=== PATIENT | female | born 1950 | race Caucasian/White ===

== ENCOUNTER 2016-08-25 16:26 | Inpatient (IN) | payer MEDICARE ==
[2016-08-25] VITALS (215 sets, daily range): BP systolic 101–108; BP diastolic 61–81; PULSE 80–97; TEMP 98.4–99.2; O2SAT 68–100
[~2016-08-25] VITALS: Ht 165.1 cm; Wt 87.1 kg
[2016-08-25 16:57] LABS: ADD PATHOLOGY DIFF REVIEW NO; HEMATOCRIT 31.3 % (37.0-47.0); HEMOGLOBIN 9.4 g/dl (12.5-16.0); MEAN CELL VOLUME 88 fl (80.0-100.0); MEAN CORPUSCULAR HEMOGLOBIN 26 pg (27.0-31.0); MEAN CORPUSCULAR HGB CONC 30 g/dl (33.0-37.0); MEAN PLATELET VOLUME 10.3 fl (7.4-10.4); PLATELET COUNT 185 K/mm3 (130-400); RED BLOOD COUNT 3.57 M/mm3 (4.10-5.30); REDCELL DISTRIBUTION WIDTH-CV 18.7 % (11.5-14.5)
[2016-08-25 17:01] LABS: INR 1.4 (0.8-3.0); PROTHROMBIN TIME 16.1 SECONDS (9.7-12.8)
[2016-08-25 17:07] LABS: ADJUSTED CALCIUM 8.6 mg/dL (8.4-10.2); ALBUMIN 3.7 gm/dL (3.5-5.0); BILIRUBIN,TOTAL 0.8 mg/dL (0.0-1.0); CALCIUM 8.4 mg/dL (8.4-10.2); CREATININE, serum 1.52 mg/dL (0.52-1.25); POTASSIUM 3.6 mmol/L (3.4-5.0); TOTAL PROTEIN 7.2 gm/dL (6.4-8.2)
[2016-08-25 17:16] LABS: ARTERIAL BLD GAS TCO2 CT 26.1; ARTERIAL BLOOD GAS BASE EXCESS 0.6 (-2-2); ARTERIAL BLOOD GAS HCO3 24.9 meq/L (22-26); ARTERIAL BLOOD GAS PHT 7.42 C (7.35-7.45); ARTERIAL BLOOD GAS PO2 58.4 mmHg (80-100); ARTERIAL BLOOD GAS PO2T 58.4 (80-100); ARTERIAL BLOOD GAS pH 7.42 (7.35-7.45)
[2016-08-25 17:21] LABS: ALLEN TEST YES; ALLENS TEST RESULT PASS; ATS? YES
[2016-08-25 17:21] LABS: TROPONIN-I 0.438 ng/mL (0.000-0.034)
[2016-08-25 17:21] LABS: BAND 14 % (0-10); NEUTROPHILS 77 % (42.0-75.2); TOTAL CELLS COUNTED 100
[2016-08-25 17:22] LABS: ANISOCYTOSIS 1+; HYPOCHROMIA 2+; MICROCYTOSIS 1+; POLYCHROMASIA 1+
[2016-08-25] MEDS ORDERED: XYZAL5 MG PO (17:26)
[2016-08-25] MEDS ORDERED: 00186-0372-20 IH (17:27)
[2016-08-25] MEDS ORDERED: LEVOXYL0.075 MG PO (17:27)
[2016-08-25] MEDS ORDERED: LIORESAL 1010 MG/TAB PO ×2 (17:28→17:32)
[2016-08-25] MEDS ORDERED: ZOLOFT 100MG100 MG PO (17:28)
[2016-08-25] MEDS ORDERED: ASPIRIN 81M81 MG/TA2 PO (17:30)
[2016-08-25] MEDS ORDERED: PROVENTIL0.09 MG/A1 IH (17:30)
[2016-08-25] MEDS ORDERED: ZOHYDRO ER10 MG PO (17:31)
[2016-08-25] MEDS ORDERED: FOLIC ACID 40400 MCG PO (17:31)
[2016-08-25] MEDS ORDERED: ALBUTEROL0.83 MG/ML IH (17:32)
[2016-08-25 18:47] LABS: MAGNESIUM 1.6 mg/dL (1.6-2.3)
[2016-08-25 19:03] LABS: PARTIAL THROMBOPLASTIN TIME 123.4 SECONDS (26.0-37.0)
[2016-08-25 19:17] LABS: PH 5 (5-8); URINE APPEARANCE Hazy; URINE BACTERIA Rare /hpf; URINE BILIRUBIN Negative (NEGATIVE); URINE BLOOD Negative (NEGATIVE); URINE COLOR Yellow; URINE GLUCOSE Negative (NEGATIVE); URINE KETONE Negative (NEGATIVE); URINE RBC 0-2 /hpf; URINE UROBILINOGEN Negative (NEGATIVE)
[2016-08-25 20:10] LABS: PARTIAL THROMBOPLASTIN TIME 30.4 SECONDS (26.0-37.0)
[2016-08-25] MEDS ORDERED: FOLIC ACID 11 MG/TA1 PO (20:22)
[2016-08-25 21:06] LABS: PH 5 (5-8); SQUAMOUS EPITHELIAL None Seen /hpf; URINE APPEARANCE Clear; URINE BACTERIA Rare /hpf; URINE BILIRUBIN Negative (NEGATIVE); URINE BLOOD Negative (NEGATIVE); URINE COLOR Yellow; URINE GLUCOSE Negative (NEGATIVE); URINE KETONE Negative (NEGATIVE); URINE RBC 0-2 /hpf; URINE UROBILINOGEN Negative (NEGATIVE); URINE WBC 0-2 /hpf
[2016-08-26] VITALS (536 sets, daily range): BP systolic 96–147; BP diastolic 56–91; PULSE 87–106; TEMP 97.5–99.4; O2SAT 77–100
[2016-08-26 00:22] LABS: HEMATOCRIT 27.2 % (37.0-47.0); HEMOGLOBIN 8.5 g/dl (12.5-16.0)
[2016-08-26 06:39] LABS: MEAN CELL VOLUME 89 fl (80.0-100.0); MEAN CORPUSCULAR HGB CONC 30 g/dl (33.0-37.0); MEAN PLATELET VOLUME 11.1 fl (7.4-10.4); PLATELET COUNT 137 K/mm3 (130-400); RED BLOOD COUNT 3.42 M/mm3 (4.10-5.30); REDCELL DISTRIBUTION WIDTH-CV 18.7 % (11.5-14.5)
[2016-08-26 06:41] LABS: MEAN CORPUSCULAR HEMOGLOBIN 26 pg (27.0-31.0)
[2016-08-26 06:42] LABS: ADD PATHOLOGY DIFF REVIEW NO; HEMATOCRIT 30.4 % (37.0-47.0)
[2016-08-26 07:21] LABS: BAND 54 % (0-10); EOSINOPHIL 1 % (0-4); NEUTROPHILS 23 % (42.0-75.2); PLATELET ESTIMATE DECREASED (NORMAL); TOTAL CELLS COUNTED 100
[2016-08-26 07:22] LABS: DOHLE BODIES PRESENT; TOXIC GRANULATION PRESENT
[2016-08-26 07:27] LABS: TROPONIN-I 0.352 ng/mL (0.000-0.034)
[2016-08-26 07:29] LABS: ADJUSTED CALCIUM 8.5 mg/dL (8.4-10.2); ALBUMIN 3.2 gm/dL (3.5-5.0); BILIRUBIN,TOTAL 0.6 mg/dL (0.0-1.0); CALCIUM 7.9 mg/dL (8.4-10.2); CREATININE, serum 1.2 mg/dL (0.52-1.25); POTASSIUM 3.4 mmol/L (3.4-5.0); TOTAL PROTEIN 6.7 gm/dL (6.4-8.2)
[2016-08-26 18:56] LABS: HEMATOCRIT 30.8 % (37.0-47.0); HEMOGLOBIN 9.2 g/dl (12.5-16.0)
[2016-08-27 00:03] VITALS: BP 127/65; PULSE 66; TEMP 98.4
[2016-08-27 03:26] VITALS: BP 128/56; PULSE 65; TEMP 98.6
[2016-08-27 07:46] VITALS: BP 121/65; PULSE 70; TEMP 98.6
[2016-08-27 11:22] LABS: CALCIUM 8.9 mg/dL (8.4-10.2); CREATININE, serum 0.9 mg/dL (0.52-1.25); POTASSIUM 3.5 mmol/L (3.4-5.0)
[2016-08-27 11:24] VITALS: BP 101/59; PULSE 71; TEMP 97.7
[2016-08-27 15:51] VITALS: BP 132/71; PULSE 72; TEMP 98.1
[2016-08-27 20:48] VITALS: BP 127/74; PULSE 92; TEMP 97.5
[2016-08-28 00:20] VITALS: BP 113/67; PULSE 64; TEMP 97.4
[2016-08-28 04:19] VITALS: BP 131/62; PULSE 65; TEMP 97.1
[2016-08-28 07:14] VITALS: BP 156/90; PULSE 66; TEMP 97.6
[2016-08-28 08:15] LABS: BASO % 0.1 % (0.0-2.0); GRAN # 5.8 (1.4-6.5); GRAN % 82.5 % (42.2-75.2); LYMPH # 0.9 (1.2-3.4); LYMPH % 12.9 % (20.0-51.0); MEAN CELL VOLUME 86 fl (80.0-100.0); MEAN CORPUSCULAR HGB CONC 30 g/dl (33.0-37.0); MEAN PLATELET VOLUME 10.3 fl (7.4-10.4); MONO # 0.3 (0.1-0.6); MONO % 3.8 % (1.7-9.3); PLATELET COUNT 189 K/mm3 (130-400); RED BLOOD COUNT 3.38 M/mm3 (4.10-5.30); REDCELL DISTRIBUTION WIDTH-CV 18.5 % (11.5-14.5); WHITE BLOOD COUNT 7.1 K/mm3 (4.8-10.8)
[2016-08-28 08:23] LABS: HEMATOCRIT 29.2 % (37.0-47.0); HEMOGLOBIN 8.8 g/dl (12.5-16.0); MEAN CORPUSCULAR HEMOGLOBIN 26 pg (27.0-31.0)
[2016-08-28 11:03] VITALS: BP 133/57; PULSE 73; TEMP 97.8
[2016-08-28 12:33] LABS: INR 1.2 (0.8-3.0); PROTHROMBIN TIME 13.2 SECONDS (9.7-12.8)
[2016-08-28 15:33] VITALS: BP 156/76; PULSE 77; TEMP 97.9
[2016-08-28 21:00] VITALS: BP 138/74; PULSE 85; TEMP 97.5
[2016-08-29 00:51] VITALS: BP 199/105; PULSE 94; TEMP 97.6
[2016-08-29 01:48] VITALS: BP 143/74; PULSE 87
[2016-08-29 05:24] VITALS: BP 178/88; PULSE 63; TEMP 97.5
[2016-08-29 07:29] VITALS: BP 141/67; PULSE 63; TEMP 98.1
[2016-08-29] MEDS ORDERED: TYLENOL 325MG325 MG PO (09:31)
[2016-08-29] MEDS ORDERED: CLEOCIN 751500 MG/10 PO (09:33)
[2016-08-29] MEDS ORDERED: PREDNISONE20 MG PO (09:33)
[2016-08-29] MEDS ORDERED: ROBITUSSIN A-C S1 M1 PO (09:33)
== END 2016-08-29 12:00 | disposition home or self-care (01) | DRG 177 ==
LOC: COL.ER 16:26 → ICU 17:39 → MEDICAL 08-26 12:23
PROVIDERS: Family Medicine; Internal Medicine; Nurse Practitioner Family
PROC: B2111ZZ Fluoroscopy of Multiple Coronary Arteries using Low Osmolar Contrast (ICD-10-PCS; principal; 2016-08-26)
PROC: 4A023N7 Measurement of Cardiac Sampling and Pressure, Left Heart, Percutaneous Approach (ICD-10-PCS; 2016-08-26)
DX: J69.0 Pneumonitis due to inhalation of food and vomit (principal); I21.4 Non-ST elevation (NSTEMI) myocardial infarction; N17.9 Acute kidney failure, unspecified; J44.1 Chronic obstructive pulmonary disease with (acute) exacerbation; J90 Pleural effusion, not elsewhere classified; E03.9 Hypothyroidism, unspecified; F32.9 Major depressive disorder, single episode, unspecified; N18.2 Chronic kidney disease, stage 2 (mild); D64.9 Anemia, unspecified; Z86.711 Personal history of pulmonary embolism; Z85.819 Personal history of malignant neoplasm of unspecified site of lip, oral cavity, and pharynx; Z92.3 Personal history of irradiation
CPT/HCPCS: 99223-AI; 99232-AI; 99233-AI; 99239; A9284; C1769; C1887; J0456; J0696; J1644; J1650; J1940; J2250; J2930; J3010; J7030; J7050; J7512; Q9967